=== PATIENT | male | born 1990 | race Caucasian/White ===

== ENCOUNTER 2019-05-19 22:50 | Inpatient (IN) | payer OTHER ==
[~2019-05-19] VITALS: Ht 167.6 cm; Wt 68.0 kg
[2019-05-20 01:26] LABS: BASOPHILS # (AUTO) 0.1 K/uL (0.0-8.0); BASOPHILS % (AUTO) 0.4 % (0.0-2.0); EOSINOPHILS # (AUTO) 0.2 K/uL (0.0-0.7); EOSINOPHILS % (AUTO) 1.2 % (0.0-7.0); HEMATOCRIT 41.1 % (36.7-47.1); HEMOGLOBIN 14.2 g/dL (12.5-16.3); LYMPHOCYTES # (AUTO) 1.5 K/uL (20.0-40.0); LYMPHOCYTES % (AUTO) 8.2 % (20.5-51.5); MEAN CORPUSCULAR HEMOGLOBIN 31.3 uug (23.8-33.4); MEAN CORPUSCULAR HGB CONC 35 g/dL (32.5-36.3); MEAN CORPUSCULAR VOLUME 90.6 fL (73.0-96.2); MONOCYTES # (AUTO) 0.8 K/uL (2.0-10.0); MONOCYTES % (AUTO) 4.4 % (0.0-11.0); NEUTROPHILS # (AUTO) 15.6 K/uL (1.8-8.9); NEUTROPHILS % (AUTO) 85.8 % (38.5-71.5); PLATELET COUNT (AUTO) 206 K/uL (152-348); RED BLOOD CELL COUNT(AUTO) 4.53 MIL/uL (4.06-5.63); WHITE BLOOD COUNT (AUTO) 18.1 K/uL (3.6-10.2)
[2019-05-20 02:20] LABS: ALANINE AMINOTRANSFERASE 49 U/L (16-63); ALKALINE PHOSPHATASE 80 U/L (50-136); ASPARTATE AMINOTRANSFERASE 41 U/L (15-37); BILIRUBIN,DIRECT 0.1 mg/dL (0.0-0.2); BILIRUBIN,TOTAL 0.5 mg/dL (0.2-1.0); CARBON DIOXIDE 27 mmol/L (21-32); CHLORIDE 98 mmol/L (98-107); CREATININE 0.6 mg/dL (0.6-1.3); GLUCOSE 97 mg/dL (74-106); LIPASE 234 U/L (73-393); POTASSIUM 3.8 mmol/L (3.5-5.1); TOTAL PROTEIN, SERUM 7.6 g/dL (6.4-8.2); UREA NITROGEN, BLOOD 11 mg/dL (7-18)
[2019-05-20 02:32] LABS: ETHANOL < 3 MG/DL (0-0)
[2019-05-20] MEDS ORDERED: CHLORDIAZEPOXIDE HCL 25 MG CAPSULE PO ONE ×2 (03:00)
[2019-05-20 03:13] LABS: *BILIRUBIN,URIN NEGATIVE (NEGATIVE); *BLOOD, URINE NEGATIVE (NEGATIVE); *CLARITY,URINE CLOUDY (CLEAR); *COLOR,URINE YELLOW (YELLOW); *KETONES,URINE 1+ (NEGATIVE); UGLUCOSE NEGATIVE (NEGATIVE)
[2019-05-20 03:14] LABS: *UROBILINOGEN,URINE 0.2 E.U./dl (NORMAL); BACTERIA,URINE FEW /HPF (NONE SEEN); LEUKOCYTE ESTERASE ,URINE NEGATIVE (NEGATIVE); NITRITE, URINE NEGATIVE (NEGATIVE); RBC,URINE NONE SEEN /HPF (0-3); SQUAMOUS EPITHELIAL CELL,UR NONE SEEN /HPF (NONE SEEN); WBC,URINE 0-3 /HPF (0-3)
[2019-05-20 03:15] LABS: URINE AMORPHOUS URATE MANY /HPF
[2019-05-20] MEDS ORDERED: TEMAZEPAM 15 MG CAPSULE PO PRN (04:15)
[2019-05-20] MEDS ORDERED: MAGNESIUM HYDROXIDE 30 ML LIQUID UDC PO PRN (04:15)
[2019-05-20] MEDS ORDERED: ACETAMINOPHEN 325 MG TABLET PO PRN (04:15)
[2019-05-20] MEDS ORDERED: ONDANSETRON 4 MG/2 ML VIAL IV PRN (04:15)
[2019-05-20] MEDS ORDERED: Z GUARD REMEDY PASTE 57 GM TUBE TOP PRN (04:15)
[2019-05-20] MEDS ORDERED: HYDROCODONE/APAP 5-325MG TABLET PO PRN (04:15)
[2019-05-20 06:01] VITALS: BP 136/75
[2019-05-20] MEDS: IV NS 1000 ML 1,000 ML IV PRN ×2 (08:52→19:58)
[2019-05-20] MEDS: THIAMINE HCL 100 MG TABLET PO SCH (08:52)
[2019-05-20] MEDS: LORAZEPAM 2 MG/1 ML VIAL IV PRN ×2 (08:52→20:09)
[2019-05-20 11:11] VITALS: BP 145/78
[2019-05-20] MEDS ORDERED: KETOROLAC TROMETHAMINE 15 MG INJ IVP PRN (11:15)
[2019-05-20] MEDS: CHLORDIAZEPOXIDE HCL 25 MG CAPSULE PO SCH ×2 (12:20→17:18)
[2019-05-20 15:06] VITALS: BP 108/45
[2019-05-20 15:09] VITALS: BP 143/69
[2019-05-20 20:15] VITALS: BP 137/85
[2019-05-21 00:42] VITALS: BP 132/75
[2019-05-21] MEDS: LORAZEPAM 2 MG/1 ML VIAL IV PRN ×3 (02:39→20:19)
[2019-05-21] MEDS: IV NS 1000 ML 1,000 ML IV PRN ×2 (04:31→20:18)
[2019-05-21 05:22] VITALS: BP 138/98
[2019-05-21 07:03] LABS: BASOPHILS % (AUTO) 0.6 % (0.0-2.0); EOSINOPHILS # (AUTO) 0.7 K/uL (0.0-0.7); EOSINOPHILS % (AUTO) 11.7 % (0.0-7.0); HEMATOCRIT 38.3 % (36.7-47.1); LYMPHOCYTES # (AUTO) 1.5 K/uL (20.0-40.0); LYMPHOCYTES % (AUTO) 26.1 % (20.5-51.5); MEAN CORPUSCULAR HEMOGLOBIN 31.2 uug (23.8-33.4); MEAN CORPUSCULAR HGB CONC 34 g/dL (32.5-36.3); MEAN CORPUSCULAR VOLUME 91.7 fL (73.0-96.2); MONOCYTES # (AUTO) 0.4 K/uL (2.0-10.0); MONOCYTES % (AUTO) 6.6 % (0.0-11.0); NEUTROPHILS # (AUTO) 3.2 K/uL (1.8-8.9); PLATELET COUNT (AUTO) 163 K/uL (152-348); RED BLOOD CELL COUNT(AUTO) 4.17 MIL/uL (4.06-5.63); WHITE BLOOD COUNT (AUTO) 5.8 K/uL (3.6-10.2)
[2019-05-21 07:09] LABS: ALANINE AMINOTRANSFERASE 38 U/L (16-63); ALKALINE PHOSPHATASE 70 U/L (50-136); ASPARTATE AMINOTRANSFERASE 28 U/L (15-37); BILIRUBIN,DIRECT 0.1 mg/dL (0.0-0.2); BILIRUBIN,TOTAL 0.4 mg/dL (0.2-1.0); CARBON DIOXIDE 29 mmol/L (21-32); CHLORIDE 104 mmol/L (98-107); CREATININE 0.7 mg/dL (0.6-1.3); GLUCOSE 110 mg/dL (74-106); MAGNESIUM 1.7 mg/dL (1.8-2.4); PHOSPHOROUS 4.4 mg/dL (2.5-4.9); POTASSIUM 3.5 mmol/L (3.5-5.1); TOTAL PROTEIN, SERUM 6.3 g/dL (6.4-8.2); UREA NITROGEN, BLOOD 9 mg/dL (7-18)
[2019-05-21] MEDS ORDERED: CHLORDIAZEPOXIDE HCL 25 MG CAPSULE PO SCH (08:15)
[2019-05-21] MEDS: THIAMINE HCL 100 MG TABLET PO SCH (08:44)
[2019-05-21] MEDS: FLUCONAZOLE 100 MG TABLET GT SCH (08:44)
[2019-05-21] MEDS: FOLIC ACID 1 MG TABLET PO SCH (08:44)
[2019-05-21] MEDS ORDERED: FOLIC ACID 1 MG TABLET PO SCH (09:00)
[2019-05-21 11:05] VITALS: BP 141/100
[2019-05-21] MEDS: CHLORDIAZEPOXIDE HCL 25 MG CAPSULE PO SCH ×2 (14:12→17:08)
[2019-05-21] MEDS: MAGNESIUM SULFATE/D5W 100 ML IV SCH ×2 (15:43→17:51)
[2019-05-21 15:46] VITALS: BP 156/98
[2019-05-21 20:38] VITALS: BP 127/88
[2019-05-21] MEDS: NICOTINE 7 MG/24HR PATCH TD SCH (21:22)
[2019-05-22] MEDS: IV NS 1000 ML 1,000 ML IV PRN (04:02)
[2019-05-22 05:42] VITALS: BP 123/77
[2019-05-22 06:26] LABS: CARBON DIOXIDE 27 mmol/L (21-32); CHLORIDE 104 mmol/L (98-107); CREATININE 0.7 mg/dL (0.6-1.3); GLUCOSE 99 mg/dL (74-106); MAGNESIUM 1.8 mg/dL (1.8-2.4); PHOSPHOROUS 4.5 mg/dL (2.5-4.9); UREA NITROGEN, BLOOD 14 mg/dL (7-18)
[2019-05-22 06:54] LABS: BASOPHILS % (AUTO) 0.5 % (0.0-2.0); EOSINOPHILS # (AUTO) 0.9 K/uL (0.0-0.7); HEMATOCRIT 40.1 % (36.7-47.1); HEMOGLOBIN 13.5 g/dL (12.5-16.3); LYMPHOCYTES # (AUTO) 1.8 K/uL (20.0-40.0); LYMPHOCYTES % (AUTO) 26.9 % (20.5-51.5); MEAN CORPUSCULAR HGB CONC 34 g/dL (32.5-36.3); MEAN CORPUSCULAR VOLUME 92.1 fL (73.0-96.2); MONOCYTES # (AUTO) 0.5 K/uL (2.0-10.0); MONOCYTES % (AUTO) 7.8 % (0.0-11.0); NEUTROPHILS # (AUTO) 3.4 K/uL (1.8-8.9); NEUTROPHILS % (AUTO) 51.8 % (38.5-71.5); PLATELET COUNT (AUTO) 148 K/uL (152-348); RED BLOOD CELL COUNT(AUTO) 4.35 MIL/uL (4.06-5.63); WHITE BLOOD COUNT (AUTO) 6.6 K/uL (3.6-10.2)
[2019-05-22] MEDS: CHLORDIAZEPOXIDE HCL 25 MG CAPSULE PO SCH (08:18)
[2019-05-22] MEDS: FOLIC ACID 1 MG TABLET PO SCH (08:18)
[2019-05-22] MEDS: FLUCONAZOLE 100 MG TABLET GT SCH (08:19)
[2019-05-22] MEDS: NICOTINE 7 MG/24HR PATCH TD SCH (08:19)
[2019-05-22] MEDS: THIAMINE HCL 100 MG TABLET PO SCH (08:19)
[2019-05-22 13:03] VITALS: BP 141/89
[2019-05-22 16:36] VITALS: BP 139/94
== END 2019-05-22 19:35 | disposition other institution (70) | DRG 897 ==
LOC: ER 22:50 → TELE3 05-20 05:15 → MEDSURG3 05-22 11:45
PROVIDERS: ADMIT Nurse Practitioner Acute Care; ATTEND Student in an Organized Health Care Education/Training Program
DX: F10.239 Alcohol dependence with withdrawal, unspecified (principal); G40.509 Epileptic seizures related to external causes, not intractable, without status epilepticus; E87.1 Hypo-osmolality and hyponatremia; Y90.0 Blood alcohol level of less than 20 mg/100 ml; L30.9 Dermatitis, unspecified; B36.9 Superficial mycosis, unspecified; F14.90 Cocaine use, unspecified, uncomplicated; D72.829 Elevated white blood cell count, unspecified
CPT/HCPCS: 36415; 70450; 83690; 83735; 84100; 85025; 93005; A4663; A9150; G0378; G0480; J1885; J2060; J3475; J7030; J7050